=== PATIENT | female | born 1975 | race African-American/Black ===

== ENCOUNTER 2018-08-28 01:06 | Emergency (ER) | payer OTHER ==
[2018-08-28] MEDS ORDERED: LIDOCAINE 5% (700 MG) TRANSDERMAL ADH..PATCH TP ONE (02:15)
[2018-08-28] MEDS ORDERED: KETOROLAC TROMETHAMINE 60 MG/2 ML SDV IM ONE (02:15)
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
[2018-08-28 02:38] VITALS: BP 125/77
== END 2018-08-28 02:39 | disposition home or self-care (01) ==
LOC: ER 01:06
DX: M54.2 Cervicalgia (principal); M79.18 Myalgia, other site; V49.40XA Driver injured in collision with unspecified motor vehicles in traffic accident, initial encounter
CPT/HCPCS: 99283; 96372; J1885